=== PATIENT | female | born 1960 | race Caucasian/White ===

== ENCOUNTER 2020-08-10 15:33 | Outpatient (CLI) | payer OTHER ==
--- NOTE | 2020-08-10 16:25 | XRAY Report ---
PROCEDURE: Knee 3 View LT INDICATIONS: KNEE PAIN, LEFT TECHNIQUE: 3 views of the left knee(s) were acquired. COMPARISON: None. FINDINGS: Bones: No fractures or dislocations. No suspicious bony lesions. There is mild medial femorotibial joint space narrowing, with associated degenerative change with sub chondral sclerosis and osteophyte formation. Soft tissues: No significant joint effusion. No suspicious soft tissue calcifications. IMPRESSION: Mild medial femorotibial joint space narrowing is seen. If there is strong clinical concern for internal arrangement of the knee, please consider a dedicated knee MRI for further evaluation (assuming that there is no contraindication). Reviewed by: Michael Velazquez MD on 08/10/2020 3:23 PM [facility] Approved by: Michael Velazquez MD on 08/10/2020 3:23 PM [facility] Station ID: [id number]
== END 2020-08-10 15:39 | disposition home or self-care (01) ==
LOC: DI.S 15:33
PROVIDERS: ATTEND Physician Assistant
DX: M25.562 Pain in left knee (principal)